=== PATIENT | female | born 2000 | race Caucasian/White ===

== ENCOUNTER 2019-02-22 16:44 | Emergency (ER) | payer SELFPAY ==
--- NOTE | 2019-02-22 18:32 | ULT ---
FEXAM: Transabdominal and transvaginal pelvic ultrasound with Doppler PROVIDED CLINICAL HISTORY: Vaginal bleeding COMPARISON: None FINDINGS: Uterus measures approximately 6.3 x 3.1 x 3.5 cm and demonstrates a normal sonographic appearance. Right ovary demonstrates 1.3 somewhat complex cystic structure likely reflecting a physiologic cyst. Left ovary appears unremarkable. Color Doppler and spectral analysis of the ovarian waveforms demonst rates normal flow bilaterally. Trace, likely physiologic free pelvic fluid is seen. IMPRESSION: No evidence for an intrauterine gestational sac. Correlate with serial beta hCG values.
== END 2019-02-22 18:59 | disposition home or self-care (01) ==
LOC: ERS 16:44
DX: O20.0 Threatened abortion (principal); O99.351 Diseases of the nervous system complicating pregnancy, first trimester; G40.909 Epilepsy, unspecified, not intractable, without status epilepticus; O99.331 Smoking (tobacco) complicating pregnancy, first trimester; F17.210 Nicotine dependence, cigarettes, uncomplicated; Z3A.01 Less than 8 weeks gestation of pregnancy
CPT/HCPCS: 36415; 76856; 86900; 86901